=== PATIENT | male | born 1975 | race Two or more races ===

== ENCOUNTER 2017-01-04 09:06 | Emergency (ER) | payer OTHER ==
--- NOTE | 2017-01-04 09:59 | ER Document Report ---
HPI - HPI Patient complains to provider of: med refill Onset: Yesterday Onset/Duration: Gradual Quality of pain: Sharp Pain Level: 5 Context: Patient states that he flew here yesterday from [place]. Patient states that the flight was overcrowded and that they were asked to check their carry- on luggage. Patient had left his medications in his carry-on baggage and takes pain medication for chronic back pain. Patient states that he typically takes [place] 10/325 2 tablets every 4 hours and Soma 350 mg to treat his chronic back pain. Patient states pain is typical of chronic low back pain and radiates into his left thigh. Patient states that pain is typical of usual chronic low back pain. Patient denies any new injury. Patient denies any fever, recent illness or IV drug use. Associated Symptoms: Other - Low back pain Exacerbated by: Movement Relieved by: Denies Similar symptoms previously: Yes Recently seen / treated by doctor: No - ROS ROS below otherwise negative: Yes Systems Reviewed and Negative: Yes All other systems reviewed and negative - CONSTITUTIONAL Constitutional: DENIES: Fever, Chills - NEURO Neurology: DENIES: Weakness - CARDIOVASCULAR Cardiovascular: DENIES: Chest pain - MUSCULOSKELETAL Musculoskeletal: REPORTS: Extremity pain, Back Pain - DERM Skin Color: Normal Skin Problems: None Past Medical History - General Information source: Patient - Social History Smoking Status: Former Smoker Chew tobacco use (# tins/day): No Frequency of alcohol use: None Drug Abuse: None Family History: Reviewed & Not Pertinent Patient has suicidal ideation: No Patient has homicidal ideation: No Renal/ Medical History: Denies: Hx Peritoneal Dialysis Musculoskeltal Medical History: Reports Other - chronic back pain Past Surgical History: Reports: Hx Abdominal Surgery - gastric bypass 2010 - Immunizations Hx Diphtheria, Pertussis, Tetanus Vaccination: Yes Vertical Provider Document - CONSTITUTIONAL Agree With Documented VS: Yes Exam Limitations: No Limitations General Appearance: WD/WN, No Apparent Distress Notes: PHYSICAL EXAMINATION: GENERAL: Well-appearing, well-nourished and in no acute distress. HEAD: Atraumatic, normocephalic. EYES: sclera clear, anicteric, conjunctiva are normal. ENT: nares patent, Moist mucous membranes. NECK: Normal range of motion, supple LUNGS: respirations unlabored HEART: Regular rate and rhythm without murmurs EXTREMITIES: Normal range of motion, no pitting or edema. No cyanosis. Gait normal, pt ambulates without difficulty BACK: Lumbar paraspinal tenderness, lower lumbar midline tenderness, no deformities or step-offs. No CVA tenderness. NEUROLOGICAL: Cranial nerves grossly intact. Normal speech, normal gait. No saddle anesthesia. No foot drop PSYCH: Normal mood, normal affect. SKIN: Warm, Dry, normal turgor, no rashes or lesions noted. - INFECTION CONTROL TRAVEL OUTSIDE OF THE [place] IN LAST 30 DAYS: No - RESPIRATORY O2 Sat by Pulse Oximetry: 97 Course - Re-evaluation Re-evalutation: 01/04/17 09:54 Patient advised that the emergency department does not manage chronic painful conditions and does not refill pain medications. Patient advised that if he runs out of his medication he should follow-up with primary doctor for refill of his chronic medications. 01/04/17 09:55 Reviewed patient's home medication list to verify dosage of pain medications. Patient states that he has been on hydrocodone 10 mg 2 tablets every 4 hours as he has a hx of gastric bypass and cannot take long acting narcotics - Vital Signs Vital signs: Temp Pulse Resp BP Pulse Ox 98.3 F 102 H 97 H 138/83 H 97 01/04/17 09:14 01/04/17 09:14 01/04/17 09:14 01/04/17 09:14 01/04/17 09:14 Discharge - Discharge Clinical Impression: Medication refill Chronic low back pain Qualifiers: Back pain laterality: unspecified Sciatica presence: with sciatica Sciatica laterality: sciatica of left side Qualified Code(s): M54.42 - Lumbago with sciatica, left side Condition: Stable Disposition: HOME, SELF-CARE Instructions: Low Back Pain ([facility]), Ice Packs ([facility]), Warm Packs ([facility]), Oral Narcotic Medication ([facility]), Family Physicians / Practices Additional Instructions: Return as needed for any new or worsening symptoms Follow up with your primary care provider for a recheck Prescriptions: Carisoprodol [Soma 350 Mg Tablet] 350 mg PO TID #15 tablet Hydrocodone/Acetaminophen [[place] 10-325 mg Tablet] 1 tab PO Q4 PRN #30 tablet PRN Reason: Referrals: [facility] [Provider Group] - Follow up as needed [facility] [Provider Group] - Follow up as needed
[2017-01-04 10:14] VITALS: BP 129/84
== END 2017-01-04 10:12 | disposition home or self-care (01) ==
LOC: ER 09:06
DX: Z76.0 Encounter for issue of repeat prescription (principal); G89.29 Other chronic pain; M54.42 Lumbago with sciatica, left side; Z79.891 Long term (current) use of opiate analgesic; Z79.899 Other long term (current) drug therapy; Z87.891 Personal history of nicotine dependence; Z98.84 Bariatric surgery status
CPT/HCPCS: 99283